=== PATIENT | female | born 1965 | race African-American/Black ===

== ENCOUNTER → 2016-12-08 | Day surgery (SDC) | payer BC ==
[~2016-12-08] MED LIST: CELEXA20 MG PO; DAZIDOX10 MG PO; OXYCONTIN20 MG PO; TOPAMAX200 MG PO; TRIAMTERENE-HC1 EACH PO; VITAMIN D31000 UNIT PO
--- NOTE | ~2016-12-08 | OR ---
Unit #: [id number] #: [id number] Patient: GUILLERMO CHEN [id number] [address] [place], [place] [address] [id number] O MR#: [id number] NAME: GUILLERMO CHEN ROOM: Date of Procedure: 12/08/2016 Admission Date: 12/08/2016 Surgeon: Rex Salgado M.D. : 1965 Attending Physician: Rex Salgado M.D. Primary Care Physician: Francoise Lutz M.D. OPERATIVE REPORT PREOPERATIVE DIAGNOSES Radiculopathy, degenerative disk disease, back pain. POSTOPERATIVE DIAGNOSES Radiculopathy, degenerative disk disease, back pain. PROCEDURE PERFORMED Transforaminal epidural steroid injection with intravenous sedation and fluoroscopic guidance for needle localization. INDICATIONS FOR PROCEDURE The patient is a 51-year-old female with return of left lower extremity pain that is known to be due to severe degenerative disk disease, neural foraminal narrowing, and spinal stenosis most significant at L5-S1 level. She was last treated with a single transforaminal injection in 12/2015. She has injection done that were between 3 and 10 months in the past for this problem. Symptoms are in the same distribution in the left leg. Based on history, pathology, and symptomatology, we are going to proceed with a repeat transforaminal injection today. DESCRIPTION OF PROCEDURE The patient was placed in a prone position. Standard monitors were applied. 4 mg of Versed were given for sedation and anxiolysis, which were adequate. Vital signs remained stable. Sterile prep and drape then of the lumbosacral area was performed. The skin then to the left of midline at the L5-S1 level was localized with 1% lidocaine. A long 22-gauge Quincke point spinal needle was then advanced with biplanar fluoroscopic guidance to bring the needle tip to within the left L5-S1 neural foramina. The patient did have paresthesia, which resolved after slightly retracting the needle. After confirming proper positioning with fluoroscopy and radiographic contrast, a dose of 80 mg of Depo-Medrol and 1 mL of 0.25% bupivacaine were deposited. The patient tolerated the procedure otherwise well and was discharged to recovery room in stable condition. Dictated by... David Girard/kimber Unit #: [id number] #: [id number] Patient: GUILLERMO CHEN TD: 12/08/2016 23:48 JOB #: [id number] OPERATIVE REPORT Page 1 of 1 X Rex Salgado MD X PROCEDURE OPERATIVE NOTE
== END | disposition home or self-care (01) ==
LOC: CCSC 11-24 11:00
DX: M51.16 Intervertebral disc disorders with radiculopathy, lumbar region (principal); M99.73 Connective tissue and disc stenosis of intervertebral foramina of lumbar region; M48.07 Spinal stenosis, lumbosacral region
CPT/HCPCS: J1040; J2250